=== PATIENT | female | born 1940 | race Caucasian/White ===

== ENCOUNTER 2020-03-13 12:40 | Inpatient (IN) | payer MEDICARE, OTHER ==
[~2020-03-13] VITALS: Ht 165.1 cm; Wt 92.7 kg
[2020-03-13 13:18] LABS: Basophils # (auto) 0 10 ^3/uL (0-0.2); Basophils % (auto) 0.5 % (0.0-2.0); Eosinophils # (auto) 0 10 ^3/uL (0-0.8); Eosinophils % (auto) 0.1 % (0.0-7.0); Hemoglobin 13.3 g/dL (12.2-16.2); Lymphocytes # (auto) 0.5 10 ^3/uL (0.4-5.4); Lymphocytes % (auto) 6.5 % (10.0-50.0); Mean Corpuscular Hemoglobin 27.2 pg (28.0-32.0); Mean Corpuscular Hgb Conc. 33.4 g/dL (32.0-36.0); Mean Corpuscular Volume 81.4 fL (80.0-100.0); Monocytes # (auto) 0.4 10 ^3/uL (0-1.3); Monocytes % (auto) 5.5 % (0.0-12.0); Neutrophils # (auto) 6.8 10 ^3/uL (1.6-8.6); Neutrophils % (auto) 87.4 % (37.0-80.0); Platelet Count (auto) 287 10^3/uL (140-450); Red Blood Cells 4.91 10^6/uL (4.0-5.20); Red Cell Distribution Width 15.8 % (11.8-14.3); White Blood Cell 7.8 10^3/uL (4.4-10.8)
[2020-03-13 13:24] LABS: INR 1.05 (0.9-1.15); Partial Thromboplastin Time 31.6 sec (23.0-31.2)
[2020-03-13 13:29] LABS: Albumin 2.7 g/dL (3.4-5.0); Anion Gap 9 (5-15); BUN/Creatinine Ratio 16.2; Blood Urea Nitrogen 27 mg/dL (7-18); Calcium 9.3 mg/dL (8.5-10.1); Carbon Dioxide 21 mmol/L (21-32); Chloride 102 mmol/L (98-107); GFR African American 38 mL/min; GFR Non-African American 32 mL/min; Glucose 113 mg/dL (74-106); Potassium 3.8 mmol/L (3.5-5.1); Sodium 132 mmol/L (136-145)
[2020-03-13 13:34] LABS: Alanine Aminotransferase 20 U/L (13-56); Alkaline Phosphatase 54 U/L (45-117); Aspartate Aminotransferase 45 U/L (15-37); Bilirubin, Total 0.3 mg/dL (0.2-1.0); Total Protein 7.2 g/dL (6.4-8.2)
[2020-03-13] MEDS ORDERED: ONDANSETRON HCL 4 MG/2 ML VIAL IV PRN (18:00)
[2020-03-13] MEDS ORDERED: REMDESIVIR PER PHARMACY 0 ML IV SCH (18:00)
[2020-03-13] MEDS ORDERED: MORPHINE SULF INJ 2 MG/ML SYRINGE 1ML IV PRN (18:00)
[2020-03-13] MEDS ORDERED: NITROGLYCERIN 0.4 MG SL TAB SL PRN (18:00)
[2020-03-13] MEDS ORDERED: DEXTROSE (50%) 50ML SYRG IV PRN (18:00)
[2020-03-13] MEDS ORDERED: REMDESIVIR 200 MG in NS 210ml LOADING DOSE ADULT IV ONE (18:45)
[2020-03-13] MEDS ORDERED: ACETAMINOPHEN 325 MG TAB PO ONE (22:00)
[2020-03-13] MEDS: InsuLIN REG 1unit/0.01ml Soln (100units/ml) SC SCH (22:00)
[2020-03-13] MEDS: ACCU-CHEK COMFORT CURVE STRIP VI SCH (23:39)
[2020-03-14] MEDS: ACCU-CHEK COMFORT CURVE STRIP VI SCH ×4 (07:00→22:53)
[2020-03-14] MEDS: InsuLIN REG 1unit/0.01ml Soln (100units/ml) SC SCH ×4 (07:00→22:00)
[2020-03-14 07:53] LABS: Basophils # (auto) 0 10 ^3/uL (0-0.2); Basophils % (auto) 0.4 % (0.0-2.0); Eosinophils # (auto) 0.1 10 ^3/uL (0-0.8); Eosinophils % (auto) 0.8 % (0.0-7.0); Hematocrit 39.2 % (36.0-46.0); Hemoglobin 13.2 g/dL (12.2-16.2); Lymphocytes # (auto) 0.6 10 ^3/uL (0.4-5.4); Mean Corpuscular Hemoglobin 27.4 pg (28.0-32.0); Mean Corpuscular Hgb Conc. 33.8 g/dL (32.0-36.0); Monocytes # (auto) 0.4 10 ^3/uL (0-1.3); Monocytes % (auto) 5.5 % (0.0-12.0); Neutrophils # (auto) 6.1 10 ^3/uL (1.6-8.6); Neutrophils % (auto) 85.3 % (37.0-80.0); Nucleated Red Blood Cells % 0.1 %; Platelet Count (auto) 266 10^3/uL (140-450); Red Blood Cells 4.83 10^6/uL (4.0-5.20); Red Cell Distribution Width 16.2 % (11.8-14.3); White Blood Cell 7.1 10^3/uL (4.4-10.8)
[2020-03-14 08:17] LABS: Potassium 3.2 mmol/L (3.5-5.1)
[2020-03-14 08:32] LABS: Albumin 2.4 g/dL (3.4-5.0); BUN/Creatinine Ratio 19.5; Bilirubin, Total 0.4 mg/dL (0.2-1.0); Calcium 8.9 mg/dL (8.5-10.1)
[2020-03-14] MEDS: ASCORBIC ACID 1,000 MG TAB PO SCH (10:00)
[2020-03-14] MEDS: ENOXAPARIN SOD 40 MG/0.4 ML SYRINGE SC SCH (10:00)
[2020-03-14] MEDS: PANTOPRAZOLE 40 MG/10 ML VIAL INJ IV SCH (10:00)
[2020-03-14] MEDS: ZINC SULFATE 220mg CAP or TAB PO SCH (10:00)
[2020-03-14] MEDS: CHOLECALCIFEROL (VITD3) 2,000 UNIT CAP PO SCH (10:00)
[2020-03-14] MEDS: REMDESIVIR 100 MG in SODIUM CHL 0.9% 250 ML IV SCH (15:00)
[2020-03-15] VITALS (10 sets, daily range): BP systolic 120–148; BP diastolic 61–97
[2020-03-15] MEDS ORDERED: CLOP75TA28 PO (03:44)
[2020-03-15] MEDS ORDERED: FURO40TA4 PO (03:44)
[2020-03-15] MEDS ORDERED: CANA100T PO (03:44)
[2020-03-15] MEDS ORDERED: POTA8TAB2 PO (03:44)
[2020-03-15] MEDS ORDERED: SIMV-8 PO (03:44)
[2020-03-15] MEDS ORDERED: CALC1CAP31 PO (03:44)
[2020-03-15] MEDS ORDERED: FEBU80TA PO (03:44)
[2020-03-15] MEDS ORDERED: ASPI-543 PO (03:44)
[2020-03-15] MEDS ORDERED: LISI-646 PO (03:44)
[2020-03-15] MEDS ORDERED: POTA10TA51 PO (03:44)
[2020-03-15] MEDS: ACCU-CHEK COMFORT CURVE STRIP VI SCH ×4 (06:53→21:56)
[2020-03-15] MEDS: InsuLIN REG 1unit/0.01ml Soln (100units/ml) SC SCH ×4 (06:53→21:56)
[2020-03-15] MEDS: ASCORBIC ACID 1,000 MG TAB PO SCH (10:40)
[2020-03-15] MEDS: CHOLECALCIFEROL (VITD3) 2,000 UNIT CAP PO SCH (10:40)
[2020-03-15] MEDS: ENOXAPARIN SOD 40 MG/0.4 ML SYRINGE SC SCH (10:40)
[2020-03-15] MEDS: PANTOPRAZOLE 40 MG/10 ML VIAL INJ IV SCH (10:40)
[2020-03-15] MEDS: ZINC SULFATE 220mg CAP or TAB PO SCH (10:40)
[2020-03-15] MEDS: REMDESIVIR 100 MG in SODIUM CHL 0.9% 250 ML IV SCH (15:23)
[2020-03-16 06:00] VITALS: BP 126/63
[2020-03-16] MEDS: ACCU-CHEK COMFORT CURVE STRIP VI SCH ×4 (06:42→22:00)
[2020-03-16] MEDS: InsuLIN REG 1unit/0.01ml Soln (100units/ml) SC SCH ×4 (06:44→22:00)
[2020-03-16 08:25] LABS: Potassium 3.1 mmol/L (3.5-5.1)
[2020-03-16 08:45] LABS: Albumin 2.1 g/dL (3.4-5.0); BUN/Creatinine Ratio 17.8; Bilirubin, Total 0.6 mg/dL (0.2-1.0); Calcium 8.6 mg/dL (8.5-10.1); Total Protein 6.8 g/dL (6.4-8.2)
[2020-03-16 09:00] VITALS: BP_SYST 136; BP_SYST 140; BP_DIAS 60; BP_DIAS 65
[2020-03-16] MEDS: CHOLECALCIFEROL (VITD3) 2,000 UNIT CAP PO SCH (10:47)
[2020-03-16] MEDS: ASCORBIC ACID 1,000 MG TAB PO SCH (10:47)
[2020-03-16] MEDS: PANTOPRAZOLE 40 MG/10 ML VIAL INJ IV SCH (10:47)
[2020-03-16] MEDS: ZINC SULFATE 220mg CAP or TAB PO SCH (10:47)
[2020-03-16] MEDS: ENOXAPARIN SOD 40 MG/0.4 ML SYRINGE SC SCH (10:48)
[2020-03-16 13:00] VITALS: BP 140/65
[2020-03-16] MEDS ORDERED: POTASSIUM CHL 20 Meq TABLET PO ONE (15:00)
[2020-03-16] MEDS: REMDESIVIR 100 MG in SODIUM CHL 0.9% 250 ML IV SCH (15:41)
[2020-03-16] MEDS ORDERED: guaiFENesin-CODEINE Liq 5 ML UD PO PRN (16:00)
[2020-03-16 17:00] VITALS: BP 145/75
[2020-03-16 21:45] VITALS: BP 122/75
[2020-03-17] MEDS: InsuLIN REG 1unit/0.01ml Soln (100units/ml) SC SCH ×4 (06:31→22:00)
[2020-03-17] MEDS: ACCU-CHEK COMFORT CURVE STRIP VI SCH ×4 (06:31→22:00)
[2020-03-17 06:52] LABS: Albumin 2.1 g/dL (3.4-5.0); Calcium 8.9 mg/dL (8.5-10.1); Potassium 3.1 mmol/L (3.5-5.1)
[2020-03-17 06:56] LABS: BUN/Creatinine Ratio 12.1; Bilirubin, Direct 0.3 mg/dL (0-0.2); Bilirubin, Total 0.5 mg/dL (0.2-1.0); Total Protein 7.1 g/dL (6.4-8.2)
[2020-03-17 08:30] VITALS: BP 147/72
[2020-03-17] MEDS: PANTOPRAZOLE 40 MG/10 ML VIAL INJ IV SCH (10:55)
[2020-03-17] MEDS: CHOLECALCIFEROL (VITD3) 2,000 UNIT CAP PO SCH (10:55)
[2020-03-17] MEDS: ZINC SULFATE 220mg CAP or TAB PO SCH (10:55)
[2020-03-17] MEDS: ASCORBIC ACID 1,000 MG TAB PO SCH (10:55)
[2020-03-17] MEDS: ENOXAPARIN SOD 40 MG/0.4 ML SYRINGE SC SCH (10:56)
[2020-03-17] MEDS: REMDESIVIR 100 MG in SODIUM CHL 0.9% 250 ML IV SCH (16:05)
[2020-03-17 16:24] VITALS: BP 137/68
[2020-03-17 22:00] VITALS: BP 137/68
[2020-03-17 23:12] VITALS: BP 132/62
[2020-03-18 05:50] VITALS: BP 146/74
[2020-03-18] MEDS: ACCU-CHEK COMFORT CURVE STRIP VI SCH ×4 (06:53→21:42)
[2020-03-18] MEDS: InsuLIN REG 1unit/0.01ml Soln (100units/ml) SC SCH ×4 (06:53→21:42)
[2020-03-18] MEDS: ENOXAPARIN SOD 40 MG/0.4 ML SYRINGE SC SCH (08:39)
[2020-03-18] MEDS: PANTOPRAZOLE 40 MG/10 ML VIAL INJ IV SCH (08:40)
[2020-03-18] MEDS: ASCORBIC ACID 1,000 MG TAB PO SCH (08:40)
[2020-03-18] MEDS: CHOLECALCIFEROL (VITD3) 2,000 UNIT CAP PO SCH (08:40)
[2020-03-18] MEDS: ZINC SULFATE 220mg CAP or TAB PO SCH (08:40)
[2020-03-18 09:00] VITALS: BP 139/72
[2020-03-18] MEDS ORDERED: POTASSIUM CHL 20 Meq TABLET PO ONE (12:00)
[2020-03-18 16:00] VITALS: BP 128/65
[2020-03-18 22:15] VITALS: BP 125/70
[2020-03-19 05:06] VITALS: BP 148/72
[2020-03-19] MEDS: ACCU-CHEK COMFORT CURVE STRIP VI SCH ×4 (06:40→22:31)
[2020-03-19] MEDS: InsuLIN REG 1unit/0.01ml Soln (100units/ml) SC SCH ×4 (06:40→22:00)
[2020-03-19 08:00] VITALS: BP 118/65
[2020-03-19] MEDS: CHOLECALCIFEROL (VITD3) 2,000 UNIT CAP PO SCH (10:36)
[2020-03-19] MEDS: ASCORBIC ACID 1,000 MG TAB PO SCH (10:37)
[2020-03-19] MEDS: ZINC SULFATE 220mg CAP or TAB PO SCH (10:37)
[2020-03-19] MEDS: ENOXAPARIN SOD 40 MG/0.4 ML SYRINGE SC SCH (10:37)
[2020-03-19] MEDS: PANTOPRAZOLE 40 MG/10 ML VIAL INJ IV SCH (10:38)
[2020-03-19 16:00] VITALS: BP 120/66
[2020-03-20] VITALS: BP 117/62
[2020-03-20] MEDS: InsuLIN REG 1unit/0.01ml Soln (100units/ml) SC SCH ×4 (06:07→21:52)
[2020-03-20] MEDS: ACCU-CHEK COMFORT CURVE STRIP VI SCH ×4 (06:07→21:52)
[2020-03-20 08:00] VITALS: BP 124/70
[2020-03-20] MEDS: ENOXAPARIN SOD 40 MG/0.4 ML SYRINGE SC SCH (09:35)
[2020-03-20] MEDS: PANTOPRAZOLE 40 MG/10 ML VIAL INJ IV SCH (09:35)
[2020-03-20] MEDS: ZINC SULFATE 220mg CAP or TAB PO SCH (09:36)
[2020-03-20] MEDS: ASCORBIC ACID 1,000 MG TAB PO SCH (09:36)
[2020-03-20] MEDS: CHOLECALCIFEROL (VITD3) 2,000 UNIT CAP PO SCH (09:36)
[2020-03-20 16:00] VITALS: BP 133/67
[2020-03-20 18:40] LABS: Basophils # (auto) 0 10 ^3/uL (0-0.2); Eosinophils # (auto) 0.3 10 ^3/uL (0-0.8); Lymphocytes # (auto) 0.8 10 ^3/uL (0.4-5.4); Monocytes # (auto) 0.7 10 ^3/uL (0-1.3); Neutrophils # (auto) 4.8 10 ^3/uL (1.6-8.6)
[2020-03-20 18:42] LABS: Basophils % (auto) 0.3 % (0.0-2.0); Eosinophils % (auto) 4.1 % (0.0-7.0); Hematocrit 34.4 % (36.0-46.0); Hemoglobin 11.6 g/dL (12.2-16.2); Lymphocytes % (auto) 12.3 % (10.0-50.0); Mean Corpuscular Hemoglobin 27.6 pg (28.0-32.0); Mean Corpuscular Hgb Conc. 33.7 g/dL (32.0-36.0); Mean Corpuscular Volume 81.9 fL (80.0-100.0); Monocytes % (auto) 10.5 % (0.0-12.0); Neutrophils % (auto) 72.8 % (37.0-80.0); Platelet Count (auto) 453 10^3/uL (140-450); Red Cell Distribution Width 15.7 % (11.8-14.3); White Blood Cell 6.6 10^3/uL (4.4-10.8)
[2020-03-20 19:00] LABS: Albumin 1.9 g/dL (3.4-5.0); Calcium 9.3 mg/dL (8.5-10.1); Potassium 3.5 mmol/L (3.5-5.1)
[2020-03-20 19:03] LABS: Bilirubin, Total 0.2 mg/dL (0.2-1.0); Total Protein 6.6 g/dL (6.4-8.2)
[2020-03-21] VITALS: BP 126/71
[2020-03-21] MEDS: ACCU-CHEK COMFORT CURVE STRIP VI SCH ×4 (06:43→21:17)
[2020-03-21] MEDS: InsuLIN REG 1unit/0.01ml Soln (100units/ml) SC SCH ×4 (06:44→21:18)
[2020-03-21 09:00] VITALS: BP 133/64
[2020-03-21] MEDS: ENOXAPARIN SOD 40 MG/0.4 ML SYRINGE SC SCH (10:21)
[2020-03-21] MEDS: CHOLECALCIFEROL (VITD3) 2,000 UNIT CAP PO SCH (10:21)
[2020-03-21] MEDS: PANTOPRAZOLE 40 MG/10 ML VIAL INJ IV SCH (10:21)
[2020-03-21] MEDS: ZINC SULFATE 220mg CAP or TAB PO SCH (10:21)
[2020-03-21] MEDS: ASCORBIC ACID 1,000 MG TAB PO SCH (10:21)
[2020-03-21] MEDS ORDERED: DexAMETHasone SOD PHOS 10MG/1ML VIAL INJ IV ONE (12:45)
[2020-03-21] MEDS ORDERED: IPRATROPIUM BROM 0.5 MG/2.5ML INH SOL NEB SCH (14:00)
[2020-03-21] MEDS ORDERED: ALBUTEROL SULF 2.5 MG/0.5ML(0.5%) NEB SOLN NEB SCH (14:00)
[2020-03-21 16:32] VITALS: BP 130/74
[2020-03-21] MEDS: BUDESONIDE (INHALATION) 180 MCG IH IN SCH (20:45)
[2020-03-21] MEDS: ALBUTEROL SULF HFA 90MCG INH 200DOSE IN SCH (20:45)
[2020-03-22] VITALS: BP 120/67
[2020-03-22] MEDS: ALBUTEROL SULF HFA 90MCG INH 200DOSE IN SCH ×2 (06:30→19:38)
[2020-03-22] MEDS: InsuLIN REG 1unit/0.01ml Soln (100units/ml) SC SCH ×4 (06:37→21:36)
[2020-03-22] MEDS: ACCU-CHEK COMFORT CURVE STRIP VI SCH ×4 (06:37→21:30)
[2020-03-22 08:00] VITALS: BP 154/79
[2020-03-22] MEDS: BUDESONIDE (INHALATION) 180 MCG IH IN SCH ×2 (09:56→19:38)
[2020-03-22] MEDS: ZINC SULFATE 220mg CAP or TAB PO SCH (10:22)
[2020-03-22] MEDS: PANTOPRAZOLE 40 MG/10 ML VIAL INJ IV SCH (10:22)
[2020-03-22] MEDS: DexAMETHasone SOD PHOS 10MG/1ML VIAL INJ IV SCH (10:22)
[2020-03-22] MEDS: ASCORBIC ACID 1,000 MG TAB PO SCH (10:23)
[2020-03-22] MEDS: CHOLECALCIFEROL (VITD3) 2,000 UNIT CAP PO SCH (10:23)
[2020-03-22] MEDS: ENOXAPARIN SOD 40 MG/0.4 ML SYRINGE SC SCH (10:23)
[2020-03-22 16:00] VITALS: BP 141/72
[2020-03-23] VITALS: BP 120/75
[2020-03-23] MEDS: ACCU-CHEK COMFORT CURVE STRIP VI SCH ×4 (06:20→22:29)
[2020-03-23] MEDS: InsuLIN REG 1unit/0.01ml Soln (100units/ml) SC SCH ×4 (06:26→22:39)
[2020-03-23 08:00] VITALS: BP 135/82
[2020-03-23] MEDS: PANTOPRAZOLE 40 MG/10 ML VIAL INJ IV SCH (09:01)
[2020-03-23] MEDS: DexAMETHasone SOD PHOS 10MG/1ML VIAL INJ IV SCH (09:01)
[2020-03-23] MEDS: ZINC SULFATE 220mg CAP or TAB PO SCH (09:01)
[2020-03-23] MEDS: ASCORBIC ACID 1,000 MG TAB PO SCH (09:01)
[2020-03-23] MEDS: CHOLECALCIFEROL (VITD3) 2,000 UNIT CAP PO SCH (09:02)
[2020-03-23] MEDS: ENOXAPARIN SOD 40 MG/0.4 ML SYRINGE SC SCH (09:02)
[2020-03-23] MEDS: ALBUTEROL SULF HFA 90MCG INH 200DOSE IN SCH ×3 (09:45→20:14)
[2020-03-23] MEDS: BUDESONIDE (INHALATION) 180 MCG IH IN SCH ×2 (09:45→20:14)
[2020-03-23] MEDS: NYSTATIN (MOUTH-THROAT) 500,000 UNITS/5 ML SUSP MT SCH ×3 (11:40→22:29)
[2020-03-23] MEDS: Ensure Enlive Strawberry 8oz Bottle PO SCH ×2 (11:40→17:39)
[2020-03-23 16:00] VITALS: BP 174/77
[2020-03-24] VITALS: BP 168/86
[2020-03-24] MEDS: ACCU-CHEK COMFORT CURVE STRIP VI SCH ×4 (06:10→22:04)
[2020-03-24] MEDS: NYSTATIN (MOUTH-THROAT) 500,000 UNITS/5 ML SUSP MT SCH ×4 (06:10→22:03)
[2020-03-24] MEDS: InsuLIN REG 1unit/0.01ml Soln (100units/ml) SC SCH ×4 (06:10→22:06)
[2020-03-24 07:51] VITALS: BP 141/75
[2020-03-24] MEDS: Ensure Enlive Strawberry 8oz Bottle PO SCH ×3 (09:00→18:11)
[2020-03-24] MEDS: DexAMETHasone SOD PHOS 10MG/1ML VIAL INJ IV SCH (09:00)
[2020-03-24] MEDS: ZINC SULFATE 220mg CAP or TAB PO SCH (09:01)
[2020-03-24] MEDS: ENOXAPARIN SOD 40 MG/0.4 ML SYRINGE SC SCH (09:01)
[2020-03-24] MEDS: PANTOPRAZOLE 40 MG/10 ML VIAL INJ IV SCH (09:01)
[2020-03-24] MEDS: ASCORBIC ACID 1,000 MG TAB PO SCH (09:01)
[2020-03-24] MEDS: CHOLECALCIFEROL (VITD3) 2,000 UNIT CAP PO SCH (09:01)
[2020-03-24] MEDS: BUDESONIDE (INHALATION) 180 MCG IH IN SCH ×2 (10:00→21:14)
[2020-03-24 11:21] LABS: Hematocrit 35.5 % (36.0-46.0); Hemoglobin 11.8 g/dL (12.2-16.2); Mean Corpuscular Hemoglobin 27.4 pg (28.0-32.0); Mean Corpuscular Hgb Conc. 33.4 g/dL (32.0-36.0); Mean Corpuscular Volume 82.1 fL (80.0-100.0); Platelet Count (auto) 429 10^3/uL (140-450); Red Blood Cells 4.32 10^6/uL (4.0-5.20); Red Cell Distribution Width 15.7 % (11.8-14.3); White Blood Cell 9.1 10^3/uL (4.4-10.8)
[2020-03-24 11:25] LABS: Calcium 9.4 mg/dL (8.5-10.1); Potassium 3.5 mmol/L (3.5-5.1)
[2020-03-24 11:27] LABS: BUN/Creatinine Ratio 16.5; CRP High Sensitivity 0.46 mg/dL (< 0.3)
[2020-03-24 14:06] LABS: Basophils % (auto) 0.5 % (0.0-2.0); Eosinophils % (auto) 1.2 % (0.0-7.0); Lymphocytes # (auto) 0.9 10 ^3/uL (0.4-5.4); Lymphocytes % (auto) 10.4 % (10.0-50.0); Monocytes % (auto) 8.3 % (0.0-12.0); Neutrophils # (auto) 7.2 10 ^3/uL (1.6-8.6); Neutrophils % (auto) 79.6 % (37.0-80.0)
[2020-03-24 14:07] LABS: Basophils # (auto) 0 10 ^3/uL (0-0.2); Eosinophils # (auto) 0.1 10 ^3/uL (0-0.8); Monocytes # (auto) 0.8 10 ^3/uL (0-1.3)
[2020-03-24 16:00] VITALS: BP 137/77
[2020-03-24] MEDS: ALBUTEROL SULF HFA 90MCG INH 200DOSE IN SCH (21:14)
[2020-03-25] VITALS: BP 126/59
[2020-03-25] MEDS: NYSTATIN (MOUTH-THROAT) 500,000 UNITS/5 ML SUSP MT SCH ×4 (06:20→22:05)
[2020-03-25] MEDS: ACCU-CHEK COMFORT CURVE STRIP VI SCH ×4 (06:38→22:04)
[2020-03-25] MEDS: InsuLIN REG 1unit/0.01ml Soln (100units/ml) SC SCH ×4 (06:38→22:28)
[2020-03-25 08:00] VITALS: BP 148/83
[2020-03-25] MEDS: Ensure Enlive Strawberry 8oz Bottle PO SCH ×3 (09:07→17:41)
[2020-03-25] MEDS: ALBUTEROL SULF HFA 90MCG INH 200DOSE IN SCH ×2 (10:12→20:25)
[2020-03-25] MEDS: BUDESONIDE (INHALATION) 180 MCG IH IN SCH ×2 (10:12→20:25)
[2020-03-25] MEDS: ENOXAPARIN SOD 40 MG/0.4 ML SYRINGE SC SCH (11:32)
[2020-03-25] MEDS: PANTOPRAZOLE 40 MG/10 ML VIAL INJ IV SCH (11:32)
[2020-03-25] MEDS: ASCORBIC ACID 1,000 MG TAB PO SCH (11:32)
[2020-03-25] MEDS: DexAMETHasone SOD PHOS 10MG/1ML VIAL INJ IV SCH (11:32)
[2020-03-25] MEDS: ZINC SULFATE 220mg CAP or TAB PO SCH (11:32)
[2020-03-25] MEDS: CHOLECALCIFEROL (VITD3) 2,000 UNIT CAP PO SCH (11:33)
[2020-03-25 16:00] VITALS: BP 147/89
[2020-03-25] MEDS: TEMAZEPAM 15 MG CAP PO PRN (22:06)
[2020-03-26] VITALS: BP 136/83
[2020-03-26] MEDS: ACCU-CHEK COMFORT CURVE STRIP VI SCH ×4 (06:10→22:14)
[2020-03-26] MEDS: NYSTATIN (MOUTH-THROAT) 500,000 UNITS/5 ML SUSP MT SCH ×4 (06:11→22:15)
[2020-03-26] MEDS: InsuLIN REG 1unit/0.01ml Soln (100units/ml) SC SCH ×4 (06:11→22:42)
[2020-03-26] MEDS: ALBUTEROL SULF HFA 90MCG INH 200DOSE IN SCH ×3 (07:30→21:00)
[2020-03-26 08:00] VITALS: BP 152/78
[2020-03-26] MEDS: Ensure Enlive Strawberry 8oz Bottle PO SCH ×3 (08:00→18:26)
[2020-03-26] MEDS: PANTOPRAZOLE 40 MG/10 ML VIAL INJ IV SCH ×2 (10:00→10:49)
[2020-03-26] MEDS: BUDESONIDE (INHALATION) 180 MCG IH IN SCH ×2 (10:48→21:00)
[2020-03-26] MEDS: ASCORBIC ACID 1,000 MG TAB PO SCH (10:49)
[2020-03-26] MEDS: CHOLECALCIFEROL (VITD3) 2,000 UNIT CAP PO SCH (10:49)
[2020-03-26] MEDS: DexAMETHasone SOD PHOS 10MG/1ML VIAL INJ IV SCH (10:49)
[2020-03-26] MEDS: ENOXAPARIN SOD 40 MG/0.4 ML SYRINGE SC SCH (10:49)
[2020-03-26] MEDS: ZINC SULFATE 220mg CAP or TAB PO SCH (10:49)
[2020-03-26 16:00] VITALS: BP 147/77
[2020-03-26] MEDS: TEMAZEPAM 15 MG CAP PO PRN (22:21)
[2020-03-27] VITALS: BP 118/69
[2020-03-27] MEDS: ACCU-CHEK COMFORT CURVE STRIP VI SCH ×4 (06:11→22:00)
[2020-03-27] MEDS: InsuLIN REG 1unit/0.01ml Soln (100units/ml) SC SCH ×4 (06:11→22:01)
[2020-03-27] MEDS: NYSTATIN (MOUTH-THROAT) 500,000 UNITS/5 ML SUSP MT SCH ×4 (06:52→22:00)
[2020-03-27 08:00] VITALS: BP 150/81
[2020-03-27] MEDS: Ensure Enlive Strawberry 8oz Bottle PO SCH ×3 (08:00→18:20)
[2020-03-27] MEDS: ALBUTEROL SULF HFA 90MCG INH 200DOSE IN SCH ×3 (10:37→20:24)
[2020-03-27] MEDS: ZINC SULFATE 220mg CAP or TAB PO SCH (10:37)
[2020-03-27] MEDS: DexAMETHasone SOD PHOS 10MG/1ML VIAL INJ IV SCH (10:37)
[2020-03-27] MEDS: PANTOPRAZOLE 40 MG/10 ML VIAL INJ IV SCH (10:37)
[2020-03-27] MEDS: BUDESONIDE (INHALATION) 180 MCG IH IN SCH ×2 (10:37→20:24)
[2020-03-27] MEDS: ASCORBIC ACID 1,000 MG TAB PO SCH (10:38)
[2020-03-27] MEDS: ENOXAPARIN SOD 40 MG/0.4 ML SYRINGE SC SCH (10:38)
[2020-03-27] MEDS: CHOLECALCIFEROL (VITD3) 2,000 UNIT CAP PO SCH (10:38)
[2020-03-27 16:00] VITALS: BP 147/72
[2020-03-27] MEDS: TEMAZEPAM 15 MG CAP PO PRN (22:00)
[2020-03-28] VITALS: BP 128/68
[2020-03-28] MEDS: NYSTATIN (MOUTH-THROAT) 500,000 UNITS/5 ML SUSP MT SCH ×4 (06:26→21:03)
[2020-03-28] MEDS: ACCU-CHEK COMFORT CURVE STRIP VI SCH ×4 (06:26→21:04)
[2020-03-28] MEDS: ALBUTEROL SULF HFA 90MCG INH 200DOSE IN SCH ×3 (06:26→19:10)
[2020-03-28] MEDS: InsuLIN REG 1unit/0.01ml Soln (100units/ml) SC SCH ×4 (06:26→21:07)
[2020-03-28] MEDS: BUDESONIDE (INHALATION) 180 MCG IH IN SCH ×2 (06:56→19:10)
[2020-03-28 08:00] VITALS: BP 142/70
[2020-03-28] MEDS: Ensure Enlive Strawberry 8oz Bottle PO SCH ×3 (08:00→18:00)
[2020-03-28] MEDS: PANTOPRAZOLE 40 MG/10 ML VIAL INJ IV SCH (10:00)
[2020-03-28] MEDS: DexAMETHasone SOD PHOS 10MG/1ML VIAL INJ IV SCH (11:29)
[2020-03-28] MEDS: ASCORBIC ACID 1,000 MG TAB PO SCH (11:29)
[2020-03-28] MEDS: ZINC SULFATE 220mg CAP or TAB PO SCH (11:29)
[2020-03-28] MEDS: CHOLECALCIFEROL (VITD3) 2,000 UNIT CAP PO SCH (11:36)
[2020-03-28 16:00] VITALS: BP 143/60
[2020-03-28] MEDS: PANTOPRAZOLE 40 MG TAB PO SCH (21:04)
[2020-03-28] MEDS: TEMAZEPAM 15 MG CAP PO PRN (23:06)
[2020-03-29] VITALS: BP 127/67
[2020-03-29] MEDS: InsuLIN REG 1unit/0.01ml Soln (100units/ml) SC SCH ×4 (06:25→22:32)
[2020-03-29] MEDS: ACCU-CHEK COMFORT CURVE STRIP VI SCH ×3 (06:25→22:26)
[2020-03-29] MEDS: NYSTATIN (MOUTH-THROAT) 500,000 UNITS/5 ML SUSP MT SCH ×4 (06:25→22:39)
[2020-03-29] MEDS: ALBUTEROL SULF HFA 90MCG INH 200DOSE IN SCH ×3 (06:26→20:21)
[2020-03-29 08:00] VITALS: BP 168/86
[2020-03-29 08:20] VITALS: BP 150/85
[2020-03-29] MEDS: BUDESONIDE (INHALATION) 180 MCG IH IN SCH ×2 (10:00→20:21)
[2020-03-29] MEDS: Ensure Enlive Strawberry 8oz Bottle PO SCH ×3 (10:14→18:16)
[2020-03-29] MEDS: DexAMETHasone SOD PHOS 10MG/1ML VIAL INJ IV SCH (10:14)
[2020-03-29] MEDS: PANTOPRAZOLE 40 MG TAB PO SCH ×2 (10:14→22:39)
[2020-03-29] MEDS: ZINC SULFATE 220mg CAP or TAB PO SCH (10:14)
[2020-03-29] MEDS: ASCORBIC ACID 1,000 MG TAB PO SCH (10:14)
[2020-03-29] MEDS: CHOLECALCIFEROL (VITD3) 2,000 UNIT CAP PO SCH (10:15)
[2020-03-29 16:00] VITALS: BP 153/75
[2020-03-29] MEDS ORDERED: DOCUSATE SOD 100 MG CAP PO PRN (20:15)
[2020-03-29] MEDS: TEMAZEPAM 15 MG CAP PO PRN (23:52)
[2020-03-30] VITALS: BP 118/61
[2020-03-30] MEDS: ALBUTEROL SULF HFA 90MCG INH 200DOSE IN SCH ×2 (06:00→20:00)
[2020-03-30] MEDS: InsuLIN REG 1unit/0.01ml Soln (100units/ml) SC SCH ×4 (06:55→22:16)
[2020-03-30] MEDS: NYSTATIN (MOUTH-THROAT) 500,000 UNITS/5 ML SUSP MT SCH ×4 (06:55→22:16)
[2020-03-30] MEDS: ACCU-CHEK COMFORT CURVE STRIP VI SCH ×4 (06:55→22:13)
[2020-03-30 07:05] LABS: Hematocrit 36.7 % (36.0-46.0); Hemoglobin 12.1 g/dL (12.2-16.2); Mean Corpuscular Hemoglobin 27.5 pg (28.0-32.0); Mean Corpuscular Hgb Conc. 32.9 g/dL (32.0-36.0); Mean Corpuscular Volume 83.5 fL (80.0-100.0); Platelet Count (auto) 303 10^3/uL (140-450); Red Blood Cells 4.39 10^6/uL (4.0-5.20); Red Cell Distribution Width 16.5 % (11.8-14.3); White Blood Cell 10.2 10^3/uL (4.4-10.8)
[2020-03-30 07:09] LABS: Basophils % (manual) 0 (0.0-2.0); Blast Cells 0; Eosinophils % (manual) 0 (0-7); Metamyelocytes % 0; Promyelocytes % 0; Reactive Lymphocytes 0
[2020-03-30 07:29] LABS: Potassium 4.1 mmol/L (3.5-5.1)
[2020-03-30 07:53] LABS: Albumin 2.4 g/dL (3.4-5.0); BUN/Creatinine Ratio 37.4; Bilirubin, Total 0.2 mg/dL (0.2-1.0); CRP High Sensitivity 0.08 mg/dL (< 0.3); Calcium 9.5 mg/dL (8.5-10.1); Total Protein 6.1 g/dL (6.4-8.2)
[2020-03-30 07:59] LABS: Band Neutrophils % (manual) 8; Lymphocytes % (manual) 9 (10.0-50.0); Monocytes % (manual) 6 (0-12); Myelocytes % 2
[2020-03-30 08:00] VITALS: BP 130/61
[2020-03-30] MEDS: Ensure Enlive Strawberry 8oz Bottle PO SCH ×3 (08:09→18:03)
[2020-03-30] MEDS: DexAMETHasone SOD PHOS 10MG/1ML VIAL INJ IV SCH (09:38)
[2020-03-30] MEDS: BUDESONIDE (INHALATION) 180 MCG IH IN SCH ×2 (09:38→20:00)
[2020-03-30] MEDS: ZINC SULFATE 220mg CAP or TAB PO SCH (09:38)
[2020-03-30] MEDS: PANTOPRAZOLE 40 MG TAB PO SCH ×2 (09:39→22:16)
[2020-03-30] MEDS: CHOLECALCIFEROL (VITD3) 2,000 UNIT CAP PO SCH (09:39)
[2020-03-30] MEDS: ASCORBIC ACID 1,000 MG TAB PO SCH (09:39)
[2020-03-30 16:00] VITALS: BP 99/66
[2020-03-30] MEDS: TEMAZEPAM 15 MG CAP PO PRN (22:23)
[2020-03-31] VITALS: BP 145/82
[2020-03-31] MEDS: NYSTATIN (MOUTH-THROAT) 500,000 UNITS/5 ML SUSP MT SCH ×3 (06:33→17:36)
[2020-03-31] MEDS: InsuLIN REG 1unit/0.01ml Soln (100units/ml) SC SCH ×3 (06:34→17:04)
[2020-03-31] MEDS: ACCU-CHEK COMFORT CURVE STRIP VI SCH ×3 (06:34→17:04)
[2020-03-31] MEDS: ALBUTEROL SULF HFA 90MCG INH 200DOSE IN SCH (07:30)
[2020-03-31] MEDS: BUDESONIDE (INHALATION) 180 MCG IH IN SCH (07:30)
[2020-03-31 08:00] VITALS: BP 162/56
[2020-03-31] MEDS: Ensure Enlive Strawberry 8oz Bottle PO SCH ×3 (08:10→17:36)
[2020-03-31] MEDS: DexAMETHasone SOD PHOS 10MG/1ML VIAL INJ IV SCH (10:42)
[2020-03-31] MEDS: ZINC SULFATE 220mg CAP or TAB PO SCH (10:43)
[2020-03-31] MEDS: PANTOPRAZOLE 40 MG TAB PO SCH (10:43)
[2020-03-31] MEDS: ASCORBIC ACID 1,000 MG TAB PO SCH (10:43)
[2020-03-31] MEDS: CHOLECALCIFEROL (VITD3) 2,000 UNIT CAP PO SCH (10:43)
[2020-03-31 16:00] VITALS: BP 146/68
[2020-03-31 17:13] VITALS: BP 146/68
== END 2020-03-31 21:00 | disposition home health service (06) | DRG 177 ==
LOC: ER 12:40 → OVERFLOW 17:54 → TELE-EAST 03-15 01:45
PROVIDERS: ADMIT Specialist; ATTEND Hospitalist
PROC: XW033E5 Introduction of Remdesivir Anti-infective into Peripheral Vein, Percutaneous Approach, New Technology Group 5 (ICD-10-PCS; 2020-03-13)
PROC: XW13325 Transfusion of Convalescent Plasma (Nonautologous) into Peripheral Vein, Percutaneous Approach, New Technology Group 5 (ICD-10-PCS; principal; 2020-03-15)
DX: U07.1 COVID-19 (principal); J12.82 Pneumonia due to coronavirus disease 2019; J96.01 Acute respiratory failure with hypoxia; B37.0 Candidal stomatitis; E44.0 Moderate protein-calorie malnutrition; E87.6 Hypokalemia; E66.9 Obesity, unspecified; I25.10 Atherosclerotic heart disease of native coronary artery without angina pectoris; J44.9 Chronic obstructive pulmonary disease, unspecified; B37.9 Candidiasis, unspecified; Z68.34 Body mass index [BMI] 34.0-34.9, adult; I12.9 Hypertensive chronic kidney disease with stage 1 through stage 4 chronic kidney disease, or unspecified chronic kidney disease; E11.22 Type 2 diabetes mellitus with diabetic chronic kidney disease; N18.9 Chronic kidney disease, unspecified
CPT/HCPCS: 36415; 36600; 71045; 71250; 80048; 80053; 80076; 82728; 82805; 82962; 83615; 83735; 83880; 84484; 85007; 85025; 85027; 85379; 85610; 85730; 86141; 86850; 86900; 86901; 87426; 94640; 97116; 97530; C9113; G0378; J1100; J1815; J2405